=== PATIENT | female | born 1950 | race Caucasian/White ===

== ENCOUNTER 2017-07-30 11:15 | Inpatient (IN) | payer OTHER ==
[~2017-07-30] VITALS: Ht 160 cm; Wt 57.6 kg
[2017-07-30 13:30] VITALS: BP 116/79
[2017-07-30] MEDS ORDERED: MAG HYDROX/AL HYDROX/SIMETH 30 ML LIQUID UDC PO PRN (13:30)
[2017-07-30] MEDS ORDERED: MIRALAX 17 GM POWD.PACK PO PRN (13:30)
[2017-07-30] MEDS ORDERED: LOPERAMIDE HCL 2 MG CAPSULE PO PRN ×2 (13:30)
[2017-07-30] MEDS ORDERED: ACETAMINOPHEN 325 MG TABLET PO PRN (13:30)
[2017-07-30] MEDS ORDERED: DICYCLOMINE HCL 20 MG TABLET PO PRN (13:30)
--- NOTE | 2017-07-30 13:30 | NUR ---
Pre-admission Note: Client is seen in intake at this time. Alert and verbally responsive. Oriented x 4. Appears anxious and nervous regarding the admission process. Educated patient on the admission process and verbalized good understanding. Patient states "I feel fine, just anxious." Redirected and reassurance provided. Able to provide consent regarding the admission. Reports NKA. Wishes to be full code. Follows a regular diet at home. Denies any seizure history. Patient states that she is voluntarily here to safely detox off of opiates. Reports past medical hx of left ankle fusion from with last one being in 2012, right hip fracture in 1997, depression, hypothyroidism, anx anxiety. Patient brought her own meds from home. Educated patient regarding release of medication when she becomes discharged. Patient gave consent for staff to keep her meds in pharmacy. Patient able to ambulate indepenently with uneven gait due to hx of left ankle fusion. VS: Temp 98.1, Pulse 104, RR 20, O2 sat 95% RA, BP 116/79, COWS 6 - presented with anxiety, chills, hot flashes. Dr. Gold seen and evaluated patient while in intake and orders were entered.
[2017-07-30] MEDS ORDERED: THYR60TA2 PO (14:00)
[2017-07-30] MEDS ORDERED: NAPR1TAB28 PO (14:00)
[2017-07-30] MEDS ORDERED: PROP15DR45 OP (14:00)
[2017-07-30] MEDS ORDERED: ESTR1PAT78 TD (14:00)
[2017-07-30] MEDS ORDERED: L. R1TAB PO (14:00)
[2017-07-30] MEDS ORDERED: DIPH25CA83 PO (14:00)
[2017-07-30] MEDS ORDERED: ONDA4TAB8 PO (14:00)
[2017-07-30] MEDS ORDERED: SALI45SP MM (14:00)
[2017-07-30] MEDS ORDERED: PROG100C15 PO (14:00)
[2017-07-30] MEDS ORDERED: [UNRECOGNIZED DRUG - CODE] PO (14:00)
--- NOTE | 2017-07-30 14:00 | NUR ---
Admission Note: Admitted a 66 year old female who presents to [facility] to safely detox off of opiates. Patient is under the care of Dr. Ralf Gold. She is alert and oriented x 4. Verbally responsive. Able to make her needs known. Respirations even and unlabored. No SOB noted. Skin warm and moist to touch. Body search done. Fentanyl patch was removed from the patient and disposed off properly. Skin check done. No skin breakdown noted. Denies any complains of N/V/D or constipation noted. LBM 07/29/2017. Voids independently. Ambulatory ad stacey with uneven gait due to left ankle fusion. Patient is at high risk for fall. Fall precautions in place. Reports NKA. Has past medical hx of right hip fracture, left ankle fusion, chronic low back pain, anxiety, depression and hypothyroidism. Denies any seizure history. PCP: Dr. Hudson in [place], [place]. Patient states that she is currently unemployed and lives with her . She was referred by Jay from [facility]. Reports family hx of substance use - brother (ETOH abuse). Patient recently quit smoking and does not smoke cigarettes anymore. Substance Use: 1. Fentanyl - 75 mcg TD, every other day x 1 year and a half. Last use was 75mg on 07/30/2017 at 1330. 2. Ambien - 10 mg PO QHS x 6 months. Last use was 10mg PO on 07/29/2017 3. Marijuana - Smokes 1 gram daily x "few years" Treatment History: [facility]. [facility] x 30 days.
[2017-07-30 14:16] LABS: *AMPHETAMINE, URINE NEGATIVE (NEGATIVE); *BARBITURATE, URINE NEGATIVE (NEGATIVE); *CANNABINOID, URINE POSITIVE (NEGATIVE); *COCCAINE, URINE NEGATIVE (NEGATIVE); *OPIATE, URINE NEGATIVE (NEGATIVE); *PHENCYCLIDINE SCREEN,URINE NEGATIVE (NEGATIVE)
--- NOTE | 2017-07-30 14:20 | NUR ---
PT Consult Patient seen and examined by Physical Therapist at this time and patient will be started on PT. Patient was provided with FWW to safely ambulate around the unit.
[2017-07-30 15:34] LABS: BASOPHILS % (AUTO) 0.4 % (0.0-2.0); EOSINOPHILS # (AUTO) 0.1 K/uL (0.0-0.7); EOSINOPHILS % (AUTO) 0.8 % (0.0-7.0); HEMOGLOBIN 13.7 G/DL (12.0-16.0); LYMPHOCYTES # (AUTO) 0.7 K/UL (0.8-4.8); LYMPHOCYTES % (AUTO) 9.8 % (20.5-51.5); MEAN CORPUSCULAR HEMOGLOBIN 33.2 UUG (27.0-31.0); MEAN CORPUSCULAR HGB CONC 33 g/dL (32.0-37.0); MEAN CORPUSCULAR VOLUME 101.5 FL (81.0-99.0); MONOCYTES # (AUTO) 0.5 K/UL (0.1-1.30); MONOCYTES % (AUTO) 7.5 % (0.0-11.0); NEUTROPHILS # (AUTO) 5.9 K/UL (1.8-8.9); NEUTROPHILS % (AUTO) 81.5 % (38.5-71.5); PLATELET COUNT (AUTO) 218 K/UL (150-450); RED BLOOD CELL COUNT(AUTO) 4.13 MIL/UL (4.2-5.4); WHITE BLOOD COUNT (AUTO) 7.2 K/UL (4.0-11.2)
[2017-07-30 15:37] LABS: ALANINE AMINOTRANSFERASE 25 U/L (14-59); ALKALINE PHOSPHATASE 72 U/L (50-136); ASPARTATE AMINOTRANSFERASE 13 U/L (15-37); BILIRUBIN,TOTAL 0.5 mg/dL (0.2-1.0); CARBON DIOXIDE 26 mmol/L (21-32); CHLORIDE 101 mmol/L (98-107); CREATININE 0.6 mg/dL (0.6-1.3); GLUCOSE 117 mg/dL (74-106); MAGNESIUM 1.6 mg/dL (1.8-2.4); POTASSIUM 3.6 mmol/L (3.5-5.1); TOTAL PROTEIN, SERUM 7.3 g/dL (6.4-8.2); UREA NITROGEN, BLOOD 6 mg/dL (7-18)
[2017-07-30 15:55] LABS: ETHANOL < 3 MG/DL (0-0)
[2017-07-30 16:00] VITALS: BP 136/86
--- NOTE | 2017-07-30 16:00 | NUR ---
COWS Deferred: Patient is in her room. Laying in bed with eyes closed. Easily arousabe. Breathing even and unlabored. COWS Deferred at this time. Addendum: 07/30/17 at 1740 by GREGORIO IYER LVN Amended: Links added.
[2017-07-30 16:03] LABS: THYROID STIMULATING HORMONE 0.351 mIU/mL (0.358-3.740)
--- NOTE | 2017-07-30 18:56 | NUR ---
End of Shift Notes: Patient admitted today and is currently on PRNs at this time. VS monitored closely. No significant abnormalities noted. Withdrawal symptoms were closely monitored. Initial COWS 6, patient presented with anxiety, fine tremors, and mild sweats. Last COWS 6 upon admission. COWS at 1600 deferred. Compliant with care and treatment. All needs met and attended. Will continue to monitor closely.
[2017-07-30] MEDS: ONDANSETRON ODT 4 MG TAB.RAPDIS SL PRN (19:01)
--- NOTE | 2017-07-30 19:01 | NUR ---
Zofran 4 mg ODT given: Patient complained of nausea. No emesis noted. Medicated patient with Zofran 4 mg ODT as ordered. Will monitor for effectiveness.
--- NOTE | 2017-07-30 19:15 | NUR ---
START OF SHIFT NOTE : Pt. is 66 year old female who admitted to [facility] to safely detox off of opiates on 07/30/2017. Reports NKA, Full Code, Reg.Diet. Patient is under the care of Dr. Ralf Gold. LBM 07/29/2017. Voids independently. Ambulatory ad stacey with uneven gait due to left ankle fusion. Patient is at high risk for fall. Fall precautions in place. Denies any seizure history. She is alert and oriented x 4, complains of sleeplessness, anxiety, mild muscle spasm and constipation. Respirations even and unlabored. No SOB noted. Skin warm and wet to touch, Last COWS=7 at 16:00. Safety measures in place : bed on lowest position with side rails x2 up for safety, call light within reach. Will continue to monitor closely and offer help.
[2017-07-30 20:00] VITALS: BP 143/95
--- NOTE | 2017-07-30 20:01 | NUR ---
RE-ASSESSMENT CORNELIO PT. STATES SHE FEELS BETTER , DENIES NAUSEA AND VOMITING. RR=16, UNLABORED AND EVEN. Safety measures in place : bed on lowest position with side rails x2 up for safety, call light within reach. Will continue to monitor closely and offer help.
[2017-07-30] MEDS: CLONIDINE HCL 0.1 MG TABLET PO PRN (20:29)
[2017-07-30] MEDS: METHOCARBAMOL 750 MG TABLET PO PRN (20:29)
[2017-07-30] MEDS: TRAZODONE 50 MG TABLET PO PRN (20:29)
[2017-07-30] MEDS: DOCUSATE SODIUM 100 MG CAPSULE PO SCH (20:29)
[2017-07-30] MEDS: HYDROXYZINE PAMOATE 25 MG CAPSULE PO PRN (20:30)
--- NOTE | 2017-07-30 21:00 | NUR ---
PRN CATAPRESS, TRAZODONE, VISTARIL, ROBAXIN PT. COMPLAINS OF INCREASED LEVEL OF ANXIETY, MILD MUSCLE SPASM, SLEEPLESSNESS, FLASHES. PRN CATAPRESS, TRAZODONE, VISTARIL, ROBAXIN GIVEN ORDERED. Safety measures in place : bed on lowest position with side rails x2 up for safety, call light within reach. Will continue to monitor closely and offer help.
--- NOTE | 2017-07-30 22:00 | NUR ---
RE-ASSESSMENT CATAPRESS, TRAZODONE, VISTARIL, ROBAXIN PT. IS SLEEPING , RR=16, UNLABORED AND EVEN. Safety measures in place : bed on lowest position with side rails x2 up for safety, call light within reach. Will continue to monitor closely and offer help.
[2017-07-31] VITALS: BP 121/79
--- NOTE | 2017-07-31 02:00 | NUR ---
PRN ATIVAN PT. BECAME AGITATED AND RESTLESS, QS=734, RR=19/MIN . PRN ATIVAN given as ordered. Safety measures in place : bed on lowest position with side rails x2 up for safety, call light within reach. Will continue to monitor closely and offer help.
[2017-07-31] MEDS: LORAZEPAM 1 MG TABLET PO PRN ×2 (02:16→15:07)
--- NOTE | 2017-07-31 03:00 | NUR ---
RE-ASSESSMENT ATIVAN PT. IS SLEEPING , RR=16, UNLABORED AND EVEN. Safety measures in place : bed on lowest position with side rails x2 up for safety, call light within reach. Will continue to monitor closely and offer help.
[2017-07-31 06:06] LABS: HEPATITIS B SURFACE AG Negative (Negative)
--- NOTE | 2017-07-31 06:52 | NUR ---
END OF SHIFT NOTE : Pt. is 66 year old female who admitted to [facility] to safely detox off of opiates on 07/30/2017. Reports NKA, Full Code, Reg.Diet. Patient is under the care of Dr. Ralf Gold. LBM 07/29/2017. Voids independently. Ambulatory ad stacey with uneven gait due to left ankle fusion. Patient is at high risk for fall. Fall precautions in place. Denies any seizure history. Pt remains compliant with the treatment plan. PRN Catapress, Trazodone, Vistaril, Robaxin, Ativan (agitation) were given during my shift. V/S remain WNL. RR=16, even and unlabored, lungs clear upon auscultation, abdomen soft and non- distended. Pt denies nausea, vomiting and diarrhea. COWS taken when pt. was alert during the night, LAST COWS=5 at 0400 , INTAKE= 500 ml, voided x2 , slept 5 hours. Safety measures in place : bed on lowest position with side rails x2 up for safety, call light within reach. Will continue to monitor closely and offer help.
--- NOTE | 2017-07-31 07:05 | NUR ---
Start of Shift Notes: Received patient in her room. Alert and verbally responsive. Oriented x 4. Able to make needs known. Respirations even and unlabored. No SOB noted. Skin warm and dry to touch. Abdomen soft and non-distended. BS (+) in all 4 quadrants. No complains of N/V/D or constipation noted. Bladder non-distended. No dysuria. Voids independently. Ambulatory with uneven gait. Uses FWW for safety. Patient is a 66 year old female admitted for opiate dependence who was placed on PRNs at this time. Prior to admission, patient was using 75mcg of Fentanyl every other day x 1 and a half months. Has past medical hx of hypothyroidism, depression, left ankle fracture, right hip fracture, chronic low back pain. NKA. FULL CODE. On a regular diet. On fall and seizure precautions. Educated patient on her current plan of care for the day and her medication regimen. Encouraged oral fluid intake and encouraged group participation to learn new skills to prevent relapse. Will continue to monitor.
[2017-07-31 08:00] VITALS: BP 97/60
[2017-07-31] MEDS ORDERED: TUBERCULIN,PURIF.PROT.DERIV. 5 TU/0.1 ML TEST ID ONE (09:00)
[2017-07-31] MEDS ORDERED: PATIENT MAY USE OWN MED- MD OK PO SCH (09:00)
[2017-07-31] MEDS: HYDROXYZINE PAMOATE 25 MG CAPSULE PO PRN ×2 (09:07→21:32)
[2017-07-31] MEDS: ARMOUR THYROID 60 MG PO SCH (09:07)
[2017-07-31] MEDS: IBUPROFEN 600 MG TABLET PO PRN ×2 (09:07→21:32)
[2017-07-31] MEDS: FAMOTIDINE 20 MG TABLET PO SCH (09:07)
[2017-07-31] MEDS: DOCUSATE SODIUM 100 MG CAPSULE PO SCH ×2 (09:07→21:32)
[2017-07-31] MEDS: METHOCARBAMOL 750 MG TABLET PO PRN ×2 (09:08→21:32)
--- NOTE | 2017-07-31 09:08 | NUR ---
Vistaril 25 mg PO, Motrin PO, and Robaxin 750 mg PO given: Patient noted with complains of anxiety, toothache and muscle ache. PL 03/20. COWS 6. Medicated patient with Vistaril 25 mg PO, Motrin PO and Robaxin 750 mg PO as ordered. Will monitor for effectiveness.
--- NOTE | 2017-07-31 10:08 | NUR ---
Re-assessment: Per patient, PRN Vistaril, Motrin and Robaxin were effective in reducing pain and anxiety. PL 2/10.
[2017-07-31] MEDS ORDERED: BUPRENORPHINE HCL 2 MG TAB.SUBL SL ONE (11:30)
--- NOTE | 2017-07-31 11:35 | NUR ---
Subutex 2 mg SL given: MD Gold gave orders to administer Subutex 2 mg SL at this time for COWS 12. Will continue to monitor for s/s of precipitated withdrawal symptoms.
[2017-07-31] MEDS: ONDANSETRON 4 MG/2 ML VIAL IM PRN (11:45)
--- NOTE | 2017-07-31 11:45 | NUR ---
Zofran 4 mg IM given: Patient complained of nausea with x 1 episode of vomiting. Medicated patient with Zofran 4 mg IM as ordered. Will monitor for effectiveness.
[2017-07-31 12:00] VITALS: BP 130/76
--- NOTE | 2017-07-31 12:05 | NUR ---
Re-assessment: Subutex 2 mg SL Patient's COWS 12. No relief noted from 2 mg Subutex at this time. Dr. Gold made aware.
--- NOTE | 2017-07-31 12:15 | NUR ---
Re-assessment: Zofran Per patient, PRN Zofran is effective in reducing patient's nausea and vomiting.
[2017-07-31] MEDS: KETOROLAC TROMETHAMINE 30 MG INJ IM PRN (12:19)
--- NOTE | 2017-07-31 12:19 | NUR ---
Toradol 30 mg IM given: Patient verbalized 9/10 pain. No relief noted from Subutex 2 mg SL administration. Notified Dr. Gold. per jay LORENZO to administer Toradol 30 mg IM at this time. Will monitor for effectiveness.
--- NOTE | 2017-07-31 12:49 | NUR ---
Re-assessment: Toradol 30 mg IM Per patient, PRN Toradol was mildly effective in reducing pain. PL 5.
[2017-07-31] MEDS ORDERED: LORAZEPAM 1 MG TABLET PO ONE ×2 (13:00→21:00)
--- NOTE | 2017-07-31 13:10 | NUR ---
Modified Subutex taper initiated/Ativan 2 mg PO given Patient's taper initiated at this time. Subutex 4 mg SL given. Ativan 2 mg PO given for anxiety per MD Gold. COWS 12. Will monitor for effectiveness of meds.
[2017-07-31] MEDS: BUPRENORPHINE HCL 2 MG TAB.SUBL SL SCH ×3 (13:11→21:33)
--- NOTE | 2017-07-31 14:10 | NUR ---
Re-assessment: Ativan 2 mg PO given Per patient, PRN Ativan was mildly effective in reducing patient's anxiety, agitation and restlessness.
--- NOTE | 2017-07-31 15:07 | NUR ---
Ativan 2 mg PO given: Ativan 2 mg PO given at this time. Patient is noted with restlessness, moderate anxiety and agitation. Notified MD Gold. Per MD, OK to given Ativan at this time. Will monitor for effectiveness.
[2017-07-31 16:00] VITALS: BP 110/65
--- NOTE | 2017-07-31 16:07 | NUR ---
Re-assessment: Ativan 2 mg Per patient, PRN Ativan 2 mg PO given at 1507 has been effective in reducing anxiety. Will continue to monitor.
--- NOTE | 2017-07-31 19:15 | NUR ---
START OF SHIFT NOTE : Pt. is a 66 year old female admitted for opiate dependence who was placed on 5 day SUBUTEX taper on 07/31/2017. NKA, FULL CODE, on a Regular Diet. On fall and seizure precautions. Received patient in her room. Alert and verbally responsive. Oriented x 4. Able to make needs known. Respirations even and unlabored. No SOB noted. Skin warm and dry to touch. Abdomen soft and non-distended. BS (+) in all 4 quadrants. Pt. complains of increased level of anxiety, mild body ache, mild flashes, no complains of N/V/D. Bladder non-distended. No dysuria. Voids independently. Ambulatory with uneven gait. Uses FWW for safety. Educated patient on her current plan of care for the day and her medication regimen. Encouraged oral fluid intake and encouraged group participation to learn new skills to prevent relapse. Will continue to monitor. Safety measures in place : bed on lowest position with side rails x2 up for safety, call light within reach. Will continue to monitor closely and offer help
--- NOTE | 2017-07-31 19:30 | NUR ---
End of Shift Notes: Patient started on modified 5-day Subutex taper as ordered. No adverse reactions noted. VS monitored closely. No significant abnormalities noted. Withdrawal symptoms were closely monitored. Initial COWS 6, which increased to 12. Patient presented with severe anxiety, restless legs, agitation. nausea, vomiting, muscle aches, and pupil dilation, hot flashes and chills. Medicated patient with PRN Vistaril, Motrin, Robaxin at 0908 with mild help after 1 hour. Patient was seen by Dr. Gold during the shift and ordered patient to receive Subutex 2 mg SL at 1135 and Zofran 4 mg IM at 1145 for s/s of withdrawal and nausea/vomiting with mild help after 1 hour. Ativan 2 mg PO was given at 1310 due to anxiety with mild help after 1 hour and another Ativan 2 mg PO was given at 1507 with help after 1 hour. Last COWS 6. Per patient, Subutex has been effective in reducing patient's withdrawal symptoms. DVT pumps in place. Compliant with care. Unableto participate in group and activities today due to her withdrawal symptoms. All needs met and attended. Will continue to monitor closely.
[2017-07-31 20:00] VITALS: BP 117/85
[2017-07-31] MEDS ORDERED: MAGNESIUM OXIDE 400 MG TABLET PO ONE (21:00)
--- NOTE | 2017-07-31 21:00 | NUR ---
PRN TRAZODONE, VISTARIL, ROBAXIN, MOTRIN, BENTYL PT. COMPLAINS OF INCREASED LEVEL OF ANXIETY, MILD MUSCLE SPASM and stomach cramps, SLEEPLESSNESS, . PRN TRAZODONE, VISTARIL, ROBAXIN, MOTRIN, BENTYL GIVEN ORDERED. Safety measures in place : bed on lowest position with side rails x2 up for safety, call light within reach. Will continue to monitor closely and offer help.
[2017-07-31] MEDS: TRAZODONE 50 MG TABLET PO PRN (21:32)
--- NOTE | 2017-07-31 22:00 | NUR ---
RE-ASSESSMENT TRAZODONE, VISTARIL, ROBAXIN, MOTRIN, BENTYL Pt. is sleeping , RR=16, unlabored and even. Safety measures in place : bed on lowest position with side rails x2 up for safety, call light within reach. Will continue to monitor closely and offer help.
[2017-07-31] MEDS ORDERED: MAGNESIUM OXIDE 400 MG TABLET ONE (22:12)
[2017-07-31] MEDS ORDERED: LORAZEPAM 1 MG TABLET ONE (22:12)
[2017-08-01 04:00] VITALS: BP 96/50
--- NOTE | 2017-08-01 06:55 | NUR ---
END OF SHIFT NOTE : Pt. is a 66 year old female admitted for opiate dependence who was placed on 5 day SUBUTEX taper on 07/31/2017. NKA, FULL CODE, on a Regular Diet. On fall and seizure precautions. Pt remains compliant with the treatment plan. PRN MOTRIN, ROBAXIN, VISTARIL, DESYREL, BENTYL given during my shift. V/S remain WNL. RR=16, even and unlabored, lungs clear upon auscultation, abdomen soft and non- distended. Pt denies nausea, vomiting and diarrhea. COWS taken when pt. was alert during the night, LAST COWS=4 at 0400 , URPADZ=449 ml, voided x1 , slept 6 hours. Safety measures in place : bed on lowest position with side rails x2 up for safety, call light within reach. Will continue to monitor closely and offer help.
--- NOTE | 2017-08-01 07:30 | NUR ---
START OF SHIFT NOTE : Client is 66 year old female who admitted to [facility] to safely detox off of opiates on 07/30/2017. Reports NKA, Full Code, Reg.Diet. Patient is at high risk for fall. Fall precautions in place. Denies any seizure history. She is alert and oriented x 4, complains of chills, anxiety, mild muscle spasm and constipation, but refused any PRN medications at this time, prune juice given to assist with BM. Respirations even and unlabored. No SOB noted. Skin warm and wet to touch, Last COWS 4 at 0400. Safety measures in place : bed on lowest position with side rails x2 up for safety, call light within reach. Will continue to monitor closely and offer help.
[2017-08-01 08:55] VITALS: BP 117/86
[2017-08-01] MEDS ORDERED: PNEUMOCOCCAL 23-VAL P-SAC VAC 0.5 ML VIAL IM ONE (09:00)
[2017-08-01] MEDS: DOCUSATE SODIUM 100 MG CAPSULE PO SCH ×2 (09:04→21:39)
[2017-08-01] MEDS: BUPRENORPHINE HCL 2 MG TAB.SUBL SL SCH ×3 (09:04→21:38)
[2017-08-01] MEDS: FAMOTIDINE 20 MG TABLET PO SCH (09:04)
[2017-08-01] MEDS: ARMOUR THYROID 60 MG PO SCH (09:07)
--- NOTE | 2017-08-01 09:21 | NUR ---
PRN Clonidine 0.1mg PO, Vistaril 25mg PO for irritability and irritability, respectively. Call light within reach.
[2017-08-01] MEDS: CLONIDINE HCL 0.1 MG TABLET PO PRN (09:28)
[2017-08-01] MEDS: HYDROXYZINE PAMOATE 25 MG CAPSULE PO PRN ×2 (09:28→21:39)
--- NOTE | 2017-08-01 10:21 | NUR ---
Reassessment PRN Clonidine 0.1mg PO, Vistaril 25mg PO client appears less irritable and anxious.
[2017-08-01] MEDS ORDERED: LORAZEPAM 1 MG TABLET PO PRN (12:45)
[2017-08-01 13:00] VITALS: BP_SYST 103; BP_SYST 141; BP_DIAS 62; BP_DIAS 81
--- NOTE | 2017-08-01 13:40 | NUR ---
PRN Ativan 2mg PO for CIWA 10. Call light within reach.
--- NOTE | 2017-08-01 14:40 | NUR ---
Reassessment PRN Ativan 2mg PO effective CIWA 5. Call light within reach.
[2017-08-01] MEDS: LIDOCAINE 5% PATCH TD SCH (14:45)
[2017-08-01] MEDS: BACLOFEN 10 MG TABLET PO SCH ×2 (14:45→21:39)
[2017-08-01] MEDS: DICYCLOMINE HCL 20 MG TABLET PO SCH ×2 (14:45→21:39)
[2017-08-01] MEDS: GABAPENTIN 100 MG CAPSULE PO SCH ×2 (14:45→21:38)
[2017-08-01] MEDS: ACETAMINOPHEN 325 MG TABLET PO SCH ×2 (14:54→21:39)
[2017-08-01 16:55] VITALS: BP 101/66
--- NOTE | 2017-08-01 19:15 | NUR ---
START OF SHIFT NOTE : Pt. is a 66 year old female admitted for opiate dependence who was placed on 5 day SUBUTEX taper on 07/31/2017. NKA, FULL CODE, on a Regular Diet. On fall and seizure precautions. Received patient in her room. Alert and verbally responsive. Oriented x 4. Pt. complains of increased level of anxiety, mild body ache, mild flashes, no complains of N/V/D. Ambulatory with uneven gait. Uses FWW for safety. Encouraged oral fluid intake and encouraged group participation to learn new skills to prevent relapse. Last COWS=4 at 19:15. Safety measures in place : bed on lowest position with side rails x2 up for safety, call light within reach. Will continue to monitor closely and offer help
--- NOTE | 2017-08-01 19:30 | NUR ---
END OF SHIFT Client is in room, a/o x 4, she continue to present with anxious mood, flat affect. PRN Clonidine 0.1mg PO, Vistaril 25mg PO for irritability and irritability, respectively. Call light within reach. PRN Ativan 2mg PO for CIWA 10. Call light within reach.
[2017-08-01 20:00] VITALS: BP 80/50
--- NOTE | 2017-08-01 21:00 | NUR ---
PRN TRAZODONE, VISTARIL PT. COMPLAINS OF INCREASED LEVEL OF ANXIETY, , SLEEPLESSNESS, . PRN TRAZODONE, VISTARIL GIVEN ORDERED. Safety measures in place : bed on lowest position with side rails x2 up for safety, call light within reach. Will continue to monitor closely and offer help.
[2017-08-01] MEDS: TRAZODONE 50 MG TABLET PO PRN (21:39)
--- NOTE | 2017-08-01 23:00 | NUR ---
RE-ASSESSMENT TRAZODONAdina VISTARIL Pt. is sleeping , RR=16, unlabored and even. Safety measures in place : bed on lowest position with side rails x2 up for safety, call light within reach. Will continue to monitor closely and offer help.
[2017-08-02] VITALS: BP 96/60
--- NOTE | 2017-08-02 06:37 | NUR ---
END OF SHIFT NOTE : Pt. is a 66 year old female admitted for opiate dependence who was placed on 5 day SUBUTEX taper on 07/31/2017. NKA, FULL CODE, on a Regular Diet. On fall and seizure precautions. Pt remains compliant with the treatment plan. PRN DESYREL, VISTARIL were given during my shift. V/S remain WNL. RR=16, even and unlabored, lungs clear upon auscultation, abdomen soft and non- distended. Pt denies nausea, vomiting and diarrhea. COWS taken when pt. was alert during the night, LAST COWS= 4 at 0400 , LXVSYG=3199 ml, voided x 3, slept 8 hours. Safety measures in place : bed on lowest position with side rails x2 up for safety, call light within reach. Will continue to monitor closely and offer help.
--- NOTE | 2017-08-02 07:43 | NUR ---
BEGINNING OF SHIFT Patient endorsement report received from divisional human resources director nurse, all pertinent information discussed. patient is a 66 year old female admitted on: 07/30/2017 with admitting Dx: Opiate dependence, and substance use of: Ambien, and marijuana. Fall and seizure precautions observed and in place. Per divisional human resources director patient patient slept for 8 hours. Patient currently with ongoing taper of: 5 day Ativan as ordered, and is scheduled to begin day 4 of taper. continues under close observation. Patient PRN: trazodone, and Vistaril during divisional human resources director. safety measures in place. call light kept with in reach. patient with last cow score of: 4. safety measures in place. will continue to monitor closely.
[2017-08-02 08:44] VITALS: BP 113/75
[2017-08-02] MEDS: ARMOUR THYROID 60 MG PO SCH (08:44)
[2017-08-02] MEDS: DOCUSATE SODIUM 100 MG CAPSULE PO SCH ×2 (08:45→20:57)
[2017-08-02] MEDS: FAMOTIDINE 20 MG TABLET PO SCH (08:45)
[2017-08-02] MEDS: ACETAMINOPHEN 325 MG TABLET PO SCH ×3 (08:45→20:56)
[2017-08-02] MEDS: DICYCLOMINE HCL 20 MG TABLET PO SCH ×3 (08:45→20:58)
[2017-08-02] MEDS: GABAPENTIN 100 MG CAPSULE PO SCH ×2 (08:45→14:22)
[2017-08-02] MEDS: BACLOFEN 10 MG TABLET PO SCH ×2 (08:45→14:22)
[2017-08-02] MEDS: LIDOCAINE 5% PATCH TD SCH (08:46)
[2017-08-02] MEDS: ONDANSETRON ODT 4 MG TAB.RAPDIS SL PRN (08:58)
--- NOTE | 2017-08-02 08:58 | NUR ---
PRN ZOFRAN Patient c/o nausea, no episodes of vomiting noted. patient was administered Zofran 4mg sl as ordered, will monitor effectiveness of medication.
[2017-08-02] MEDS ORDERED: BUPRENORPHINE HCL 2 MG TAB.SUBL SL SCH (09:00)
[2017-08-02] MEDS ORDERED: INFLUENZA VACCINE 2017-2018 0.5 ML DISP.SYRIN IM ONE (09:00)
--- NOTE | 2017-08-02 09:58 | NUR ---
ZOFRAN REASSESSMENT Patient reports medication effective no further episodes of nausea noted, will continue to monitor.
--- NOTE | 2017-08-02 10:00 | NUR ---
MD COMMUNICATION Patient noted with redness to left upper arm area, area noted with slight swelling and redness, notified Dr. Gold, per MD will order hydrocortisone cream. will continue to monitor.
--- NOTE | 2017-08-02 10:20 | NUR ---
Therapist prompted client about group times. Client stated she would try to attend groups today.
[2017-08-02 13:17] VITALS: BP 149/63
[2017-08-02] MEDS ORDERED: HYDROCORTISONE 1% CREAM 30 GM TUBE TP PRN (14:15)
[2017-08-02] MEDS: BUPRENORPHINE HCL 2 MG TAB.SUBL SL SCH ×2 (14:22→20:57)
[2017-08-02] MEDS: ASPIRIN/ACETAMINOPHEN/CAFFEINE TABLET PO PRN (14:22)
--- NOTE | 2017-08-02 14:22 | NUR ---
PRN EXCEDRIN Patient c/o migraine 03/20, administered Excedrin as ordered, encouraged adequate PO fluid intake as tolerated, will monitor closely.
--- NOTE | 2017-08-02 15:22 | NUR ---
EXCEDRIN REASSESSMENT Patient reports medication effective, current pain level 0/10, will continue to monitor.
[2017-08-02 17:49] VITALS: BP 102/74
[2017-08-02] MEDS: ESCITALOPRAM OXALATE 10 MG TABLET PO SCH (18:21)
--- NOTE | 2017-08-02 18:54 | NUR ---
END OF SHIFT Patient alert and oriented x4, admitting Dx: opiate dependence. compliant with therapeutic plan of care. patients vital signs were stable during shift. patient currently with ongoing 5 day Subutex taper as ordered, currently on day 3 of taper, well tolerated, no ASE noted. patient encouraged adequate PO fluid intake as tolerated. 0900 assessment patient presented with: mild bone and joint aches, nasal stuffiness, stomach cramps, irritable, anxiety and nausea with cow score of: 8; 1300 assessment patient presented with: mild bone and joint aches, nasal stuffiness, stomach cramps, irritable, anxiety and nausea with cow score of: 8; 1700 assessment patient presented with: mild bone and joint aches, stomach Cramps, and mild anxiety with cow score of: 3. Medications well tolerated. during shift patient encouraged to attend group therapies/sessions to learn new coping skills to prevent relapse, patient denies any SI/HI. During shift patient received PRN: Excedrin ,and Zofran medications were effective one hour post administration. Safety measures in place. will continue to monitor, endorsement report given to steward/stewardess night nurse, all pertinent information discussed.
--- NOTE | 2017-08-02 19:15 | NUR ---
START OF SHIFT NOTE : Pt. is a 66 year old female admitted for opiate dependence who was placed on 5 day SUBUTEX taper on 07/31/2017. NKA, FULL CODE, on a Regular Diet. On fall and seizure precautions. Pt remains compliant with the treatment plan. She complains of mild body ache, increased level of anxiety and wants her sleeping pill after 21:00. Last COWS=5 at 19:15. Safety measures in place : bed on lowest position with side rails x2 up for safety, call light within reach. Will continue to monitor closely and offer help.
[2017-08-02 20:00] VITALS: BP 128/89
[2017-08-02] MEDS: NAPROXEN 500 MG TABLET PO SCH (20:56)
[2017-08-02] MEDS: GABAPENTIN 300 MG CAPSULE PO SCH (20:57)
[2017-08-02] MEDS: BACLOFEN 20 MG TABLET PO SCH (20:57)
[2017-08-02] MEDS: TRAZODONE 50 MG TABLET PO PRN (20:57)
[2017-08-02] MEDS: HYDROXYZINE PAMOATE 25 MG CAPSULE PO PRN (20:57)
--- NOTE | 2017-08-02 21:00 | NUR ---
PRN TRAZODONE, VISTARIL PT. COMPLAINS OF INCREASED LEVEL OF ANXIETY, SLEEPLESSNESS, . PRN TRAZODONE, VISTARIL GIVEN ORDERED. Safety measures in place : bed on lowest position with side rails x2 up for safety, call light within reach. Will continue to monitor closely and offer help.
--- NOTE | 2017-08-03 06:43 | NUR ---
END OF SHIFT NOTE : Pt. is a 66 year old female admitted for opiate dependence who was placed on 5 day SUBUTEX taper on 07/31/2017. NKA, FULL CODE, on a Regular Diet. On fall and seizure precautions. Pt remains compliant with the treatment plan. PRN TRAZODONE, VISTARIL were given during my shift. V/S remain WNL. RR=16, even and unlabored, lungs clear upon auscultation, abdomen soft and non- distended. Pt denies nausea, vomiting and diarrhea. COWS taken when pt. was alert during the night, LAST COWS=5 at 0400 , SGRGLM=1347 ml, voided x5 , slept 7 hours. Safety measures in place : bed on lowest position with side rails x2 up for safety, call light within reach. Will continue to monitor closely and offer help.
--- NOTE | 2017-08-03 07:00 | NUR ---
Start of Shift Report from the night nurse: Pt is a 66 y/o female here for Opiate dependence r/t Fentanyl, Benzo r/t Ambien and Marijuana daily; 5 day Subutex taper ordered. Pt is a full code, regular diet, fall and seizure precautions. HHx: Hypothyroidism, Depression, anxiety, right hip fx, Left ankle fusion and chronic lower back pain, relapse with detox in 2014. V/S stable, yet SBP low 90's to 80's at times. Skin is intact. Unsteady gait r/t past surgical vertebra surgery. PRN Vistaril given last night. Last COWS 5 Pt is asleep in room. Will cont. to monitor the pt.
[2017-08-03 08:00] VITALS: BP 92/59
[2017-08-03] MEDS: ASPIRIN/ACETAMINOPHEN/CAFFEINE TABLET PO PRN (08:47)
[2017-08-03] MEDS: ONDANSETRON 4 MG/2 ML VIAL IM PRN ×2 (08:51→15:44)
[2017-08-03] MEDS: DOCUSATE SODIUM 100 MG CAPSULE PO SCH ×2 (08:51→20:55)
[2017-08-03] MEDS: GABAPENTIN 300 MG CAPSULE PO SCH ×2 (08:51→20:54)
[2017-08-03] MEDS: NAPROXEN 500 MG TABLET PO SCH (08:51)
[2017-08-03] MEDS: BACLOFEN 20 MG TABLET PO SCH ×3 (08:52→20:54)
[2017-08-03] MEDS: ESCITALOPRAM OXALATE 10 MG TABLET PO SCH (08:52)
[2017-08-03] MEDS: BUPRENORPHINE HCL 2 MG TAB.SUBL SL SCH ×3 (08:52→20:54)
[2017-08-03] MEDS: FAMOTIDINE 20 MG TABLET PO SCH (08:52)
[2017-08-03] MEDS: DICYCLOMINE HCL 20 MG TABLET PO SCH ×3 (08:52→20:54)
[2017-08-03] MEDS: ESTRADIOL TOP SCH (08:53)
[2017-08-03] MEDS: ARMOUR THYROID 60 MG PO SCH (08:53)
[2017-08-03] MEDS: ACETAMINOPHEN 325 MG TABLET PO SCH ×3 (08:54→20:54)
[2017-08-03] MEDS: LIDOCAINE 5% PATCH TD SCH (08:54)
--- NOTE | 2017-08-03 09:15 | NUR ---
PRN Medication Administration Pt c/o BUTTS, Nausea and Constipation with no BM in more than 3 days; PRN Excedrin 1 tab, Zofran 4mg IM and Miralax given as ordered. Will reassess in 1H. Addendum: 08/03/17 at 1817 by LAN COOL RN Medication Non-Administration: Pt refused Tylenol and requested Excedrin for BUTTS.
--- NOTE | 2017-08-03 10:15 | NUR ---
Reassessment Pt states that her BUTTS and Nausea are relieved, yet no BM at this time; Excedrin and Zofran are effective. Will cont. to monitor the pt.
[2017-08-03 12:00] VITALS: BP 108/79
--- NOTE | 2017-08-03 13:35 | NUR ---
PRN Medication Administration Pt c/o severe Pain in lower back and RLE with 10-11/10 pain; PRN Toradol given as ordered. Will reassess in 1H.
[2017-08-03] MEDS: KETOROLAC TROMETHAMINE 30 MG INJ IM PRN ×2 (13:36→20:02)
[2017-08-03] MEDS ORDERED: NAPROXEN 500 MG TABLET PO PRN (14:00)
--- NOTE | 2017-08-03 14:30 | NUR ---
Reassessment Pt is resting in bed and states that her pain in the RLE decreased from 10+ to 5+; Toradol 30mg IM is somewhat effective. Will notified Dr. Gold re: pain management and discuss potential dosage increase if possible. WIll cont. to monitor the pt.
[2017-08-03 16:00] VITALS: BP 106/76
--- NOTE | 2017-08-03 19:30 | NUR ---
START OF SHIFT Pt is a 66 y/o female admitted for Opiate dependence r/t Fentanyl, Benzo r/t Ambien and Marijuana daily; Pt continues on 5 day Subutex taper as ordered. Pt is a full code, regular diet,NKA,on fall and seizure precautions. PMH of Hypothyroidism, Depression, anxiety, right hip fx, Left ankle fusion and chronic lower back pain, relapse with detox in 2014. Skin is intact. Pt has unsteady gait r/t past surgical history. Last COWS = 12.Pt received in room in a stable condition,c/o back pain,requesting for Toradol injection.All safety measures in place per hospital policy,call light within reach,will continue to monitor.
--- NOTE | 2017-08-03 19:37 | NUR ---
End of Shift Report to night nurse: Pt is a 66 y/o female here for Opiate dependence r/t Fentanyl, Benzo r/t Ambien and Marijuana daily; 5 day Subutex taper ordered. Pt is a full code, regular diet, fall and seizure precautions. HHx: Hypothyroidism, Depression, anxiety, right hip fx, Left ankle fusion and chronic lower back pain, relapse with detox in 2014. V/S stable, yet SBP low 90's to 80's at times. Skin is intact. Unsteady gait r/t past surgical vertebra surgery. PRN Excedrin, Miralax and Zofran 4mg IM given at 0915 with second dose of Zofran IM given at 1450pm, and Toradol 30mg given IM at 1335pm. Last COWS 12
[2017-08-03 20:00] VITALS: BP 106/64
--- NOTE | 2017-08-03 20:02 | NUR ---
PRN TORADOL IM GIVEN ORDERED FOR C/O BACK PAIN, LEVEL 9/10.WILL CONTINUE TO MONITOR.
--- NOTE | 2017-08-03 20:32 | NUR ---
PRN F/U TORADOL IM EFFECTIVE IN REDUCING PAIN LEVEL.PAIN LEVEL IN 3/10 AT THIS TIME.
[2017-08-03] MEDS: TRAZODONE 50 MG TABLET PO PRN (20:55)
--- NOTE | 2017-08-03 21:05 | NUR ---
PRN TRAZODONE GIVEN ORDERED FOR C/O INSOMNIA.
--- NOTE | 2017-08-03 22:00 | NUR ---
PRN EFFECTIVE.PT IS RESTING IN BED WITH EYES CLOSED.
--- NOTE | 2017-08-04 | NUR ---
V/S refused; COWS deferred. Pt is resting in bed with eyes closed,in deep sleep;breathing is even and non labored,no s/s of distress noted.
[2017-08-04 04:00] VITALS: BP 106/61
--- NOTE | 2017-08-04 06:46 | NUR ---
END OF SHIFT Pt is a 66 y/o female admitted for Opiate dependence r/t Fentanyl, Benzo r/t Ambien and Marijuana daily; Pt continues on 5 day Subutex taper as ordered. Pt is a full code, regular diet,NKA,on fall and seizure precautions. PMH of Hypothyroidism, Depression, anxiety, right hip fx, Left ankle fusion and chronic lower back pain, relapse with detox in 2014. Skin is intact. Pt has unsteady gait r/t past surgical history. Last COWS = 2.PRN Toradol injection for back pain was given and was effective.PRN Trazodone was given with good effect;Pt slept 8 hrs, fluid intake was 1000 mls,voided x 5,had b/m x 2 .All safety measures in place per hospital policy,call light within reach,will continue to monitor.
--- NOTE | 2017-08-04 07:37 | NUR ---
BEGINNING OF SHIFT Patient endorsement report received from shift engineer nurse, all pertinent information discussed. patient is a 66 year old female admitted on: 07/30/2017 with admitting Dx: Opiate dependence, and substance use of: Ambien, and marijuana. Fall and seizure precautions observed and in place. Per shift engineer patient patient slept for 8 hours. continues under close observation, monitoring cow scores and vital signs closely. Patient PRN: trazodone, and Toradol as ordered during shift engineer, medications were effective. safety measures in place. call light kept with in reach. patient with last cow score of: 2. Patient received awake, alert and oriented x4, educated regarding plan of care for the day with good verbal understanding. safety measures in place. will continue to monitor closely.
[2017-08-04] MEDS: LIDOCAINE 5% PATCH TD SCH (08:21)
[2017-08-04] MEDS: FAMOTIDINE 20 MG TABLET PO SCH (08:22)
[2017-08-04] MEDS: DOCUSATE SODIUM 100 MG CAPSULE PO SCH ×2 (08:22→21:00)
[2017-08-04] MEDS: DICYCLOMINE HCL 20 MG TABLET PO SCH ×3 (08:22→20:57)
[2017-08-04] MEDS: ESCITALOPRAM OXALATE 10 MG TABLET PO SCH (08:22)
[2017-08-04] MEDS: GABAPENTIN 300 MG CAPSULE PO SCH ×3 (08:22→20:57)
[2017-08-04] MEDS: ACETAMINOPHEN 325 MG TABLET PO SCH ×3 (08:23→20:58)
[2017-08-04] MEDS: BUPRENORPHINE HCL 2 MG TAB.SUBL SL SCH ×2 (08:23→20:58)
[2017-08-04] MEDS: BACLOFEN 20 MG TABLET PO SCH ×3 (08:23→20:57)
[2017-08-04] MEDS: ARMOUR THYROID 60 MG PO SCH (08:23)
[2017-08-04 08:25] VITALS: BP 110/80
[2017-08-04] MEDS: KETOROLAC TROMETHAMINE 30 MG INJ IM PRN ×2 (08:31→18:23)
--- NOTE | 2017-08-04 08:31 | NUR ---
PRN TORADOL Patient c/o 06/20 back pain, provided with non pharmacological interventions with no relief, administered Toradol 30mgIM as ordered. will continue to monitor.
--- NOTE | 2017-08-04 09:31 | NUR ---
TORADOL REASSESSMENT Patient reports medications effective, decrease in pain 3/10, per patient tolerable, will continue to monitor, non pharmacological interventions provided.
[2017-08-04] MEDS: ONDANSETRON ODT 4 MG TAB.RAPDIS SL PRN (13:36)
--- NOTE | 2017-08-04 13:37 | NUR ---
PRN ZOFRAN Pt c/o of increased nausea. No emesis noted. PRN Zofran 4mg SL administered as ordered. Primary nurse to reassess.
[2017-08-04 13:47] VITALS: BP 104/66
--- NOTE | 2017-08-04 14:36 | NUR ---
ZOFRAN REASSESSMENT medication effective, per patient no further nausea. will continue to monitor.
[2017-08-04] MEDS: HYDROXYZINE PAMOATE 25 MG CAPSULE PO PRN (15:01)
--- NOTE | 2017-08-04 15:01 | NUR ---
PRN VISTARIL Patient c/o increase in anxiety, provided patient non pharmacological interventions with no relief, administered Vistaril as ordered, will monitor effectiveness of medication. Safety measures in place.
--- NOTE | 2017-08-04 16:01 | NUR ---
VISTARIL REASSESSMENT Patient reports medication effective, feels less anxious, will continue to monitor.
[2017-08-04 17:23] VITALS: BP 107/68
--- NOTE | 2017-08-04 19:07 | NUR ---
PSYCHIATRIST COMMUNICATION Patient reports she is not sleeping well at night, per patient at home she was taking trazodone 200mg PO QHS. notified Dr. Ramirez with new orders to increase trazodone to 200mg PO QHSPRN. doctor so unable to input orders, orders were read back and verified, noted and carried out.
--- NOTE | 2017-08-04 19:12 | NUR ---
END OF SHIFT Patient alert and oriented x4, admitting Dx: opiate dependence. compliant with therapeutic plan of care. patients vital signs were stable during shift. patient currently with ongoing 5 day Subutex taper as ordered, currently on day 5 of taper, well tolerated, no ASE noted. patient encouraged adequate PO fluid intake as tolerated. 0900 assessment patient presented with: mild bone and joint aches, moist eyes, yawning, irritable, increase anxiety with cow score of: 5; 1300 assessment patient presented with: mild bone and joint aches, mild anxiety, and mild nausea with cow score of: 4; 1700 assessment patient presented with; mild bone and joint aches, and mid anxiety with cow score of: 2. Detox medications effective at reducing withdrawal symptoms. Medications well tolerated. during shift patient encouraged to attend group therapies/sessions to learn new coping skills to prevent relapse, patient denies any SI/HI. During shift patient received PRN: vistaril, zofran and toradol, medications were effective one hour post administration. Safety measures in place. will continue to monitor, endorsement report given to manufacturing shift supervisor nurse, all pertinent information discussed.
[2017-08-04] MEDS ORDERED: TRAZODONE 50 MG TABLET PO PRN (19:15)
--- NOTE | 2017-08-04 19:55 | NUR ---
START OF SHIFT Received report from day shift nurse. Pt is lying in bed watching TV. She is A&O x4 and ambulatory. She is a 66 yo female admitted to [facility] on 07/30 for opiate withdrawal. She is A&O x4 and ambulatory. NKA, full code status, and on a regular diet. PMH of hypothyroidism, depression, anxiety, left ankle fusion, and right hip fracture. On admission she reported using fentanyl 75mcg QOD, ambien 10mg QHS, and marijuana. Pt used oxycontin and xanax two years ago. 5 day subutex taper started on 07/31. Pt is anxious and slightly agitated with moist skin. Provided support and encouraged relaxation. She reports left ankle and right hip pain. Fall and seizure precautions in place. Bed is down with call light in reach.
[2017-08-04 20:00] VITALS: BP 132/72
[2017-08-04] MEDS: TRAZODONE 100 MG TABLET PO PRN (20:58)
--- NOTE | 2017-08-04 21:00 | NUR ---
PRN Trazodone Pt reports inability to sleep. PRN Trazodone administered.
[2017-08-04] MEDS: ONDANSETRON 4 MG/2 ML VIAL IM PRN (21:05)
--- NOTE | 2017-08-04 21:06 | NUR ---
PRN Zofran administration Pt reports nausea without vomiting. She verbalizes that Zofran ODT is not effective. PRN Zofran IM administered.
--- NOTE | 2017-08-04 21:36 | NUR ---
PRN Zofran reassessment PRN Zofran effective. Pt reports nausea is relieved.
--- NOTE | 2017-08-04 22:00 | NUR ---
PRN Trazodone reassessment PRN Trazodone not yet effective. Pt is resting in bed watching TV. She reports feeling tired but has not fallen asleep yet.
[2017-08-05] VITALS: BP 132/72
[2017-08-05] MEDS: METHOCARBAMOL 750 MG TABLET PO PRN ×2 (06:55→21:15)
[2017-08-05] MEDS: HYDROXYZINE PAMOATE 25 MG CAPSULE PO PRN ×3 (06:58→21:15)
--- NOTE | 2017-08-05 07:00 | NUR ---
PRN Robaxin and Vistaril Pt woke up and reports muscle spasms and anxiety. PRN Robaxin and Vistaril administered.
--- NOTE | 2017-08-05 07:25 | NUR ---
END OF SHIFT Report provided to day shift nurse. Pt is lying in bed resting. She is a 66 yo female admitted to [facility] on 07/30 for opiate withdrawal. She is A&O and ambulatory with a walker. NKA, full code status, and on a regular diet. PMH of hypothyroidism, depression, anxiety, left ankle fusion, and right hip fracture. On admission she reported using fentanyl 75mcg QOD, ambien 10mg QHS, and marijuana. Pt used oxycontin and xanax two years ago. She started a 5 day subutex taper on 07/31. PRN Zofran and Trazodone administered before bed. PRN Robaxin and Vistaril administered in the morning. Endorsed to day shift for follow up. Last COWS 3 before night medications. She drank 500mL and slept for 7 hours. Fall and seizure precautions in place. Bed is down with call light in reach.
--- NOTE | 2017-08-05 07:45 | NUR ---
START OF SHIFT Rcvd endorsement from ongoing nurse, client is in bed, she is a/o x 4, she presents with anxious mood, flat affect, BLE with muscle spasm, and clammy skin. She reports chills, body aches, abdominal cramps, and decreased appetite. Encouraged client to attend group therapy for skills to maintain sober. Encouraged client to increase PO fluid as tolerated to facilitate detox. Client is a 66 y/o female, admitted to [facility] for withdrawal from opiates. Client is on last of 5 day Subutex taper, tolerating well . Last CIWA 3 @ 1999. PRN Robaxin 750mg PO for muscle pain, Vistaril 25mg PO for anxiety, Zofran 4mg Inj IM for nausea, Trazodone 200mg PO for inability to sleep, noted effective. Client slept 7 hrs. She denies any hx of withdrawal-induced seizures, Client reports of NKA, she is full code, Regular diet. Client side rails x 2 up/padded for seizure precautions. Call light within reach.
[2017-08-05 08:09] VITALS: BP 116/63
[2017-08-05] MEDS: DICYCLOMINE HCL 20 MG TABLET PO SCH ×3 (08:11→20:52)
[2017-08-05] MEDS: ESCITALOPRAM OXALATE 10 MG TABLET PO SCH (08:11)
[2017-08-05] MEDS: ACETAMINOPHEN 325 MG TABLET PO SCH ×3 (08:12→20:55)
[2017-08-05] MEDS: DOCUSATE SODIUM 100 MG CAPSULE PO SCH ×2 (08:17→20:54)
[2017-08-05] MEDS: GABAPENTIN 300 MG CAPSULE PO SCH ×3 (08:18→20:55)
[2017-08-05] MEDS: BACLOFEN 20 MG TABLET PO SCH ×3 (08:18→20:54)
[2017-08-05] MEDS: FAMOTIDINE 20 MG TABLET PO SCH (08:18)
[2017-08-05] MEDS: ARMOUR THYROID 60 MG PO SCH (08:19)
[2017-08-05] MEDS: LIDOCAINE 5% PATCH TD SCH (08:19)
[2017-08-05] MEDS ORDERED: BUPRENORPHINE HCL 2 MG TAB.SUBL SL SCH (09:00)
[2017-08-05] MEDS: ONDANSETRON 4 MG/2 ML VIAL IM PRN (09:12)
--- NOTE | 2017-08-05 09:12 | NUR ---
PRN Zofran 4mg Inj IM administered on L buttock for nausea, will continue to monitor. Call light within reach.
--- NOTE | 2017-08-05 09:42 | NUR ---
Assessment PRN Zofran 4mg Inj IM effective, client verbalized relief from nausea. Call light within reach
--- NOTE | 2017-08-05 10:25 | NUR ---
SBAR communicated to WINCH RUNNER for continuity of care. Client is in bed, a/o x 4. Call light within reach.
--- NOTE | 2017-08-05 10:26 | NUR ---
ASSUMED CARE patient endorsement report received from primary nurse, all pertinent information discussed, will continue to monitor.
[2017-08-05] MEDS: KETOROLAC TROMETHAMINE 30 MG INJ IM PRN ×2 (10:47→21:54)
--- NOTE | 2017-08-05 10:47 | NUR ---
PRN TORADOL Patient c/o 05/20 back pain, provided with non pharmacological interventions with no relief, administered Toradol 30mgIM as ordered. will continue to monitor.
--- NOTE | 2017-08-05 11:47 | NUR ---
TORADOL REASSESSMENT Patient reports medications effective, decrease in pain 1/10, per patient tolerable, will continue to monitor, non pharmacological interventions provided.
[2017-08-05 13:14] VITALS: BP 111/76
--- NOTE | 2017-08-05 13:37 | NUR ---
VISTARIL REASSESSMENT Patient reports medication effective, feels less anxious, will continue to monitor.
[2017-08-05] MEDS ORDERED: CLONIDINE HCL 0.1 MG TABLET PO ONE (15:00)
--- NOTE | 2017-08-05 16:32 | NUR ---
Therapist prompted client about group times. Client stated, "I just don't want to attend groups at this point."
[2017-08-05 17:39] VITALS: BP 131/65
[2017-08-05] MEDS ORDERED: TRAZ-147 PO (18:17)
[2017-08-05] MEDS ORDERED: ACET325T53 PO (18:17)
[2017-08-05] MEDS ORDERED: DOCU100C36 PO (18:17)
[2017-08-05] MEDS ORDERED: BACL20TA PO (18:17)
[2017-08-05] MEDS ORDERED: FAMO20TA8 PO (18:17)
[2017-08-05] MEDS ORDERED: LIDO30AD10 TD (18:17)
[2017-08-05] MEDS ORDERED: Aspirin/Acetaminophen/Caffeine PO (18:17)
[2017-08-05] MEDS ORDERED: DICY20TA28 PO (18:17)
[2017-08-05] MEDS ORDERED: HYDR-3895 PO (18:17)
[2017-08-05] MEDS ORDERED: GABA-534 PO (18:17)
[2017-08-05] MEDS ORDERED: ESCI10TA PO (18:17)
[2017-08-05] MEDS ORDERED: CLON0.1T14 PO (18:17)
[2017-08-05] MEDS ORDERED: NAPR500T3 PO (18:17)
--- NOTE | 2017-08-05 18:53 | NUR ---
START OF SHIFT NOTE: Patient is 66 year old female admitted to [facility] on 07/30/2017 for medically supervised withdrawal from Fentanyl, Ambien, and Marijuana. Patient completed 5 Days Subutex Taper with tolerated well without ASE. Patient remains compliant with treatment, medications, and diet regime. Patient reports NKA, is on Full Code, Regular Diet, Fall and Seizures Precautions. Patient denies seizures history. Patient reports PMH: Hyperthyroidism, Anxiety, Depression, Chronic Low back pain, (L) Ankle fusion, (R) Fusion. Patient report [facility] Upon endorsement patient is in her room alert and oriented x4, with stable gait. Speech is soft and clear. VSWNL. COWS 5. Respirations unlabored and even. Lungs Sounds are clear thoroughly. Abdomen is soft, non-tender. Bowels Sounds presents in all x4 quadrants. Skin is intact, warm, and dry. Encouraged to fluids intake as tolerated. Encouraged to attending groups activities. All needs met. Safety measures in place: Call light within reach, bed locked, and in lowest position, padded bed rails up bilaterally. Patient endorsed by day shift nurse, report received.
--- NOTE | 2017-08-05 18:53 | NUR ---
END OF SHIFT Patient alert and oriented x4, admitting Dx: opiate dependence. compliant with therapeutic plan of care. patients vital signs were stable during shift. patient currently with ongoing 5 day Subutex taper as ordered, currently on day 5 of taper, well tolerated, no ASE noted. patient encouraged adequate PO fluid intake as tolerated. 1300 assessment patient presented with: mild bone and joint aches, tremors that can be felt but not seen, and mild anxiety with cow score of: 3; 1700 assessment patient presented with: mild bone and joint aches, tremors that can be felt but not seen, and mild anxiety with cow score of: 3. Detox medications effective at reducing withdrawal symptoms. Medications well tolerated. during shift patient encouraged to attend group therapies/sessions to learn new coping skills to prevent relapse, preferred to stay in room, despite much encouragement. patient denies any SI/HI. During shift patient received PRN: Vistaril, and Toradol, medications were effective one hour post administration. Safety measures in place. will continue to monitor, endorsement report given to maintenance technician 2nd shift nurse, all pertinent information discussed.
[2017-08-05 20:00] VITALS: BP 117/70
[2017-08-05] MEDS: TRAZODONE 100 MG TABLET PO PRN (20:23)
--- NOTE | 2017-08-05 20:23 | NUR ---
PRN TRAZODONE 50 MG 1 TAB PO Patient c/o insomnia. PRN Trazodone 50 mg 1 tab PO administrated with full glass of water as ordered. Patient tolerated well. All needs met. Safety measures on place. Call light within reach, bed in lowest position and locked, padded rails up bilaterally rails up bilaterally. Will continue to monitor closely. Addendum: 08/05/17 at 2224 by CRESCENCIO LEON RN PRN TRAZODONE 200 MG 2 TAB PO administrated
[2017-08-05] MEDS: CLONIDINE HCL 0.1 MG TABLET PO SCH (20:53)
[2017-08-05] MEDS: NAPROXEN 500 MG TABLET PO SCH (20:54)
[2017-08-05] MEDS: ESTRADIOL TOP SCH (20:55)
--- NOTE | 2017-08-05 21:00 | NUR ---
PATIENT REFUSED SCHEDULED MEDICATIONS. Patient refused scheduled medications. VS WNL. COWS 5. Patient explained, "I am going to home tomorrow, and I don't wanna medications". All needs met. Safety measures on place. Call light within reach, bed in lowest position and locked, padded rails up bilaterally rails up bilaterally. Will continue to monitor closely.
--- NOTE | 2017-08-05 21:15 | NUR ---
PRN ROBAXIN 750 MG 1 TAB PO, PRN VISTARIL 25 MG 1 CAP PO ADMINISTRATION Patient c/o myalgia, increase anxiety. Patient asked PRN Vistaril PO and PRN Robaxin PO administration. PRN Robaxin 750 mg 1 tab PO for myalgia and PRN Vistaril 25 mg 1 cap PO administrated with full glass of water as ordered. Patient tolerated well. All needs met. Safety measures on place. Call light within reach, bed in lowest position and locked, padded rails up bilaterally rails up bilaterally. Will continue to monitor closely.
--- NOTE | 2017-08-05 21:23 | NUR ---
RE-ASSESSMENT Patient is sleeping. Respirations even and unlabored. RR 15. PRN Trazodone 200mg 2 tab PO administrated to patient @2022 for low back pain was effective. All needs met. Safety measures on place. Call light within reach, bed in lowest position and locked, padded rails up bilaterally rails up bilaterally. Will continue to monitor closely.
--- NOTE | 2017-08-05 21:54 | NUR ---
PRN TORADOL 30 MG/1 ML IM ADMINISTRATION Patient c/o low back pain "05/20"and asked aid. PRN Toradol Inj 30 mg/1 ml IM on RUG administrated as ordered. Patient tolerated well. All needs met. Safety measures on place. Call light within reach, bed in lowest position and locked, padded rails up bilaterally rails up bilaterally. Will continue to monitor closely.
--- NOTE | 2017-08-05 22:15 | NUR ---
RE-ASSESSMENT Patient is sleeping. Respirations even and unlabored. RR 15. PRN Robaxin 750 mg 1 tab PO for myalgia and PRN Vistaril 25 mg 1 cap PO for anxiety were effective. All needs met. Safety measures on place. Call light within reach, bed in lowest position and locked, padded rails up bilaterally rails up bilaterally. Will continue to monitor closely.
--- NOTE | 2017-08-05 22:54 | NUR ---
RE-ASSESSMENT Patient is sleeping. Respirations even and unlabored. RR:14. PRN Toradol Inj 30 mg/1 ml IM administrated for low back pain"05/20" @2154 was effective. All needs met. Safety measures on place. Call light within reach, bed in lowest position and locked, padded rails up bilaterally rails up bilaterally. Will continue to monitor closely.
[2017-08-05] MEDS: CLONIDINE HCL 0.1 MG TABLET PO PRN (23:58)
--- NOTE | 2017-08-05 23:58 | NUR ---
PRN CLONIDINE 0.1 MG 1 TAB PO ADMINISTRATION Patient c/o increased anxiety. PRN Clonidine 0.1 mg 1 tab PO administrated for anxiety as ordered with full glass of water. Patient tolerated well. All needs met. Safety measures on place. Call light within reach, bed in lowest position and locked, padded rails up bilaterally rails up bilaterally. Will continue to monitor closely.
[2017-08-06] VITALS: BP 139/82
--- NOTE | 2017-08-06 00:58 | NUR ---
RE-ASSESSMENT Patient is sleeping. Respirations even and unlabored. RR 15. PRN Clonidine 0.1 mg 1 tab PO for anxiety administrated @2358 was effective. All needs met. Safety measures on place. Call light within reach, bed in lowest position and locked, padded rails up bilaterally rails up bilaterally. Will continue to monitor closely.
[2017-08-06 04:00] VITALS: BP 115/71
[2017-08-06] MEDS: ONDANSETRON ODT 4 MG TAB.RAPDIS SL PRN (04:32)
--- NOTE | 2017-08-06 04:32 | NUR ---
PRN ZOFRAN ODT 4 MG 1 TAB. RAPDIS SL ADMINISTRATION. Patient c/o nausea and asked aid. PRN Zofran Odt 4 mg 1 tab.RAPDIS SL administrated as ordered. Patient tolerated well. All needs met. Safety measures on place. Call light within reach, bed in lowest position and locked, padded rails up bilaterally rails up bilaterally. Will continue to monitor closely.
[2017-08-06] MEDS: HYDROXYZINE PAMOATE 25 MG CAPSULE PO PRN (05:34)
[2017-08-06] MEDS: METHOCARBAMOL 750 MG TABLET PO PRN (05:34)
--- NOTE | 2017-08-06 05:34 | NUR ---
PRN ROBAXIN 750 MG 1 TAB PO, PRN VISTARIL 25 MG 1 CAP PO ADMINISTRATION Patient c/o myalgia and increase anxiety. PRN Robaxin 750 mg 1 tab PO for myalgia and PRN Vistaril 25 mg 1 cap PO for anxiety administrated with full glass of water as ordered. Patient tolerated well. All needs met. Safety measures on place. Call light within reach, bed in lowest position and locked, padded rails up bilaterally rails up bilaterally. Will continue to monitor closely.
--- NOTE | 2017-08-06 06:34 | NUR ---
RE-ASSESSMENT Patient is sleeping. Respirations even and unlabored. RR 14. PRN Robaxin 750 mg 1 tab PO for myalgia and PRN Vistaril 25 mg 1 cap PO for anxiety were effective. All needs met. Safety measures on place. Call light within reach, bed in lowest position and locked, padded rails up bilaterally rails up bilaterally. Will continue to monitor closely.
--- NOTE | 2017-08-06 06:52 | NUR ---
END OF SHIFT NOTE: Patient is 66 year old female admitted to [facility] on 07/30/2017 for medically supervised withdrawal from Fentanyl, Ambien, and Marijuana. Patient completed 5 Days Subutex Taper with tolerated well without ASE. Patient remains compliant with treatment, medications, and diet regime. Patient reports NKA, is on Full Code, Regular Diet, Fall and Seizures Precautions. Patient reports PMH: Hyperthyroidism, Anxiety, Depression, Chronic Low back pain, (L) Ankle fusion, (R) Fusion. Patient report [facility] Patient denied HI/SI. Last COWS 7 @0400. COWS 's taken when patient's awake during night. Last VS @0400: T:97.9, BP:115/71, HR:68, RR:19, RA O2Sat:99%. Pain level: "0/10". Patient denies SI/HI. Respirations unlabored and even. Skin is intact, warm and dry to touch. DVT Pump per order. PRN Trazodone 200 mg 2 tab. PO administrated for insomnia @2022, PRN Vistaril 25 mg 1 cap. PO administrated for anxiety @2114, PRN Robaxin 750 mg 1 tab. PO administrated for myalgia @2114, PRN Toradol 30 mg/1ml IM administrated for low back pain "05/20" @2154, PRN Clonidine 0.1 mg 1 tab. PO administrated for anxiety @2358, PRN Zofran Odt 4 mg 1 tab.RAPDIS SL administrated for nausea @0432, PRN Vistaril 25 mg 1 cap. PO administrated for anxiety @0534, PRN Robaxin 750 mg 1 tab. PO administrated for myalgia @0534 were effective. Patient slept 6 hours, intake 855 ml, voided x1. Encouraged fluids as tolerated. Patient scheduled for discharging today, 08/06/2017 @1000. All needs met. Safety measures on place. Call light within reach, bed in lowest position and locked, padded rails up bilaterally. Patient endorsed to day shift nurse. Report given.
--- NOTE | 2017-08-06 07:35 | NUR ---
START OF SHIFT Received report from night nurse. 66 year old female patient admitted on 07/30/17 for opiate withdrawals. Pt is A/O x4 and has completed 5 day Subutex taper and is medically cleared for discharge. Pt has discharge location set at [facility]. Most recent COWS was 7 per night nurse report. Pt slept for 6 hours. PRN Trazodone, Robaxin, Vistaril, Toradol and Zofran administered and effective. V/S are WNL throughout shift. All needs met at this time. Pt encouraged to socialize with peers and attend groups and activities, pt refuses and stays in room. Safety measures are in place, will continue to monitor.
[2017-08-06 08:05] VITALS: BP 117/76
[2017-08-06] MEDS: ASPIRIN/ACETAMINOPHEN/CAFFEINE TABLET PO PRN (08:23)
[2017-08-06 08:24] VITALS: BP 117/76
[2017-08-06] MEDS: CLONIDINE HCL 0.1 MG TABLET PO SCH (08:24)
[2017-08-06] MEDS: DOCUSATE SODIUM 100 MG CAPSULE PO SCH (08:24)
[2017-08-06] MEDS: GABAPENTIN 300 MG CAPSULE PO SCH (08:24)
[2017-08-06] MEDS: DICYCLOMINE HCL 20 MG TABLET PO SCH (08:24)
[2017-08-06] MEDS: FAMOTIDINE 20 MG TABLET PO SCH (08:24)
[2017-08-06] MEDS: NAPROXEN 500 MG TABLET PO SCH (08:25)
[2017-08-06] MEDS: BACLOFEN 20 MG TABLET PO SCH (08:25)
[2017-08-06] MEDS: LIDOCAINE 5% PATCH TD SCH (08:25)
[2017-08-06] MEDS: ARMOUR THYROID 60 MG PO SCH (08:25)
[2017-08-06] MEDS: ESCITALOPRAM OXALATE 10 MG TABLET PO SCH (08:27)
[2017-08-06] MEDS: ACETAMINOPHEN 325 MG TABLET PO SCH (08:27)
--- NOTE | 2017-08-06 10:20 | NUR ---
D/C NOTE Pt is A/O x4. V/S remain WNL. Pt denies SI/HI or hallucinations. Pt shows no s/s of acute withdrawal at this time, and is stable. MD has medically cleared pt for d/c . Education on Hepatitis C, smoking cessation and medication side effects provided. Pt verbalizes understanding. All pt belongings are in belonging bag, including prescriptions, and home medications. Refuses PNU vaccination. Pt is being accompanied by FISCAL ANALYST at this time to be transported to rehab. All needs met.
== END 2017-08-06 10:20 | disposition home or self-care (01) | DRG 895 ==
LOC: SRC 12:10
PROVIDERS: ADMIT Internal Medicine; ATTEND Internal Medicine
PROC: HZ2ZZZZ Detoxification Services for Substance Abuse Treatment (ICD-10-PCS; principal; 2017-07-30)
PROC: HZ51ZZZ Individual Psychotherapy for Substance Abuse Treatment, Behavioral (ICD-10-PCS; 2017-08-01)
DX: F10.21 Alcohol dependence, in remission (principal); I15.9 Secondary hypertension, unspecified; E83.42 Hypomagnesemia; E03.9 Hypothyroidism, unspecified; F11.23 Opioid dependence with withdrawal; K59.03 Drug induced constipation; M24.672 Ankylosis, left ankle; Z83.3 Family history of diabetes mellitus; Z81.1 Family history of alcohol abuse and dependence; Z78.0 Asymptomatic menopausal state; F17.211 Nicotine dependence, cigarettes, in remission; G89.29 Other chronic pain; M54.5 Low back pain; F12.10 Cannabis abuse, uncomplicated; F32.9 Major depressive disorder, single episode, unspecified; R73.9 Hyperglycemia, unspecified; R26.81 Unsteadiness on feet; M25.551 Pain in right hip; M25.572 Pain in left ankle and joints of left foot
CPT/HCPCS: 36415; 80307; 80349; 83735; 84443; 85025; 86580; 86592; 86705; 86803; 87340; 87806; 90686; 90732; 93005; G0480; J1885; J2405; Q0162